=== PATIENT | female | born 1955 | race Caucasian/White ===

== ENCOUNTER → 2018-07-04 | Outpatient (CLI) | payer MEDICARE ==
[~2018-07-04] MED LIST: ALPRAZOLAM0.25 MG PO; ALTACE5 MG PO; ASPIRIN81 MG PO; FLUOXETINE HCL20 M1 PO; METOPROLOL TAR100 MG PO; NORVASC5 MG PO; PANTOPRAZOLE SO20 MG PO; PLAVIX75 MG PO; RANEXA1000 MG PO; SPIRIVA18 MCG IH; ZETIA10 MG PO; ZOCOR40 MG PO
--- NOTE | 2018-07-05 09:20 | Diagnostic Imaging Report ---
History: May back pain extending to the left arm and left shoulder Comparison studies: None Technique: Axial were obtained without IV contrast through the thoracic region. Coronal and sagittal images reconstructed from the axial data. Intravenous contrast: None Dose modulation, iterative reconstruction, and/or weight based adjustment of the mA/kV was utilized to reduce the radiation dose to as low as reasonably achievable. Findings: Alignment: Normal kyphosis. No scoliosis. Soft tissues: No paraspinal abnormalities.. Atherosclerotic calcifications of the thoracic aorta and branches. Metallic wiring is seen at the SVC and right heart cavities. Paraspinal muscles: Unremarkable Spinal cord: Can not be evaluated. Vertebrae: No fractures, infection or neoplasm. Degenerative changes: Disc degeneration with decreased intervertebral from T1 through T11, endplate sclerosis from T5 through T8 and T9-T10. Calcification of the posterior longitudinal ligament from T5-6 through T7 inferior endplate results in mild canal stenosis. No significant foraminal narrowing. The remaining canal is normal in caliber IMPRESSION: 1. No acute thoracic abnormality. 2. Mild degenerative changes results in mild canal stenosis from T5 through T8. No significant foraminal narrowing. Signed by: DR Tino Quach M.D. on 07/05/2018 9:17 AM
== END ==
LOC: CT 09:28
PROVIDERS: ATTEND Family Medicine
DX: R20.0 Anesthesia of skin (principal)
CPT/HCPCS: 72128